=== PATIENT | male | born 1965 | race Two or more races ===

== ENCOUNTER 2025-01-08 17:45 | Emergency (ER) | payer MEDICARE, MEDICAID, SELFPAY ==
[2025-01-08 17:49] VITALS: BMI 32.0
[2025-01-08 18:05] VITALS: BP 152/88; PULSE 66; RESP 20; TEMP 37.2; O2SAT 95
--- NOTE | 2025-01-08 18:28 | EKG_ITS ---
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
[2025-01-08 18:43] LABS: Basophils % (Auto) 0 % (0-2.5); Eosinophils # (Auto) 0.1 Thou/mm3 (0.0-0.5); Eosinophils % (Auto) 2 % (0-10); Hematocrit 43.4 % (41.0-53.0); Immature Granulocytes % (Auto) 0 % (0-0); Immature Granulocytes Auto 0.01 Thou/mm3 (0.00-0.00); Lymphocytes # (Auto) 3.1 Thou/mm3 (1.0-4.8); Lymphocytes % (Auto) 47 % (10-50); Mean Corpuscular HGB Conc 34.6 g/dl (31.0-37.0); Mean Corpuscular Hemoglobin 30.2 pg (25.0-35.0); Mean Corpuscular Volume 87 fL (80-100); Monocytes # (Auto) 0.5 Thou/mm3 (0.0-0.8); Monocytes % (Auto) 8 % (0-12); Neutrophils # (Auto) 2.8 Thou/mm3 (1.8-7.7); Neutrophils % (Auto) 42 % (37-80); Nucleated Red Blood Cell % 0 /100 WBC (0); Platelet Count 211 Thou/mm3 (140-440); RDW Standard Deviation 43.8 fL (35.1-43.9); Red Blood Count 4.97 Miln/mm3 (4.50-5.90); White Blood Count 6.6 Thou/mm3 (3.8-10.6)
[2025-01-08 18:52] LABS: Collection Type, Urine Clean Catch; Squamous Epithelial Cell,Urine 0 /hpf (0-5)
[2025-01-08 18:56] LABS: Bilirubin,Urine Negative (Negative); Blood,Urine Negative (Negative); Clarity,Urine Clear (Clear/Hazy); Color,Urine Yellow (Lt Yel-Yel); Glucose, Urine Negative (Negative); Ketones,Urine Trace (Negative); Leukocyte Esterase,Urine Negative (Negative); Nitrite,Urine Negative (Negative); Protein,Urine Trace (Neg - Trace); RBC,Urine 2 /hpf (0-3); Specific Gravity,Urine 1.034 (1.001-1.035); Urobilinogen,Urine Negative mg/dL (0.0-1.0); WBC,Urine < 1 /hpf (0-5)
[2025-01-08 19:07] LABS: Alanine Aminotransferase 14 U/L (10-49); Albumin, Serum 4.4 gm/dL (3.4-4.8); Albumin/Globulin Ratio 1.5 (1.2-2.2); Alkaline Phosphatase 82 U/L (46-116); Anion Gap 8 (7-16); Aspartate Amino Transferase 26 U/L (0-34); BUN/Creatinine Ratio 15 Ratio (12-20); Bilirubin,Total 0.3 mg/dL (0.3-1.2); Blood Urea Nitrogen 20 mg/dL (9-23); Calcium 9.8 mg/dL (8.3-10.6); Calcium (Corrected) 9.8 mg/dL (8.5-10.1); Carbon Dioxide 24.6 mMol/L (20.0-31.0); Chloride 106 mMol/L (98-107); Creatinine (Component) 1.3 mg/dL (0.6-1.3); Estimated Creatinine Clearance 63.5 mL/min (>60); Globulin 2.9 gm/dL (2.3-3.5); Glucose 105 mg/dL (74-106); Lipase 41 U/L (12-53); Magnesium 1.9 mg/dL (1.6-2.6); Osmolality,Calculated 280 (275-295); Potassium 4.2 mMol/L (3.4-5.1); Sodium 139 mMol/L (136-145); Total Protein 7.3 gm/dL (5.7-8.2); Troponin I < 0.020 ng/mL (0.0-0.045); eGFR > 60 See Note
[2025-01-08 20:07] VITALS: BP 163/94; PULSE 62; RESP 19; TEMP 36.8; O2SAT 96
[2025-01-08 22:23] LABS: Amphetamine/Methamp Scrn,U Negative (Negative); Barbiturate Screen,Urine Negative (Negative); Benzodiazepines Screen,Urine Negative (Negative); Benzoylecgonine Screen, Ur Negative (Negative); Fentanyl Screen,Urine Negative (Negative); Opiate Screen,Urine Negative (Negative); THC Screen,Urine Negative (Negative)
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
== END 2025-01-08 22:54 | disposition home or self-care (01) ==
PROVIDERS: Physician Assistant; Emergency Provider Emergency Medicine
DX: R11.2 Nausea with vomiting, unspecified (principal)
CPT/HCPCS: 36415; 80053; 80307; 81001; 83690; 83735; 84484; 85025; 93005; 99283

== ENCOUNTER 2025-03-12 15:00 | Outpatient (RCR) | payer MEDICARE, MEDICAID, SELFPAY ==
--- NOTE | 2025-02-26 14:43 | PTNOTE_ITS ---
PT OP Initial Eval Patient Information Outpatient Physical Therapy Treatment Date: 02/26/25 Visit Reasons: Lower back hip pain/Sciatica RTside/Left side Medical Diagnosis: M54.32 M54.31 Treatment Dx #1: LBP with radiculopathy Start of Care: 02/26/25 Date of Onset: 2 months ago Smoking Status Smoking Status: Never smoker Initial Assessment Subjective: Pt is 60 yr old yakut speaking male who reports he fell onto the L side and glute x2 months and has had pain running down the LE's since then to the feet L>R. Pt is doing ADL's and HH chores with pain. Increased pain at night and getting OOB in the morning. PLOF: Pt fell and fractured T12 in 2015 and hasn't been able to work since then. PMH: T12 FX, prostate sx 2016, epilepsy Pt goal: less pain and more strength in B LE's Objective: Trunk ArOM: ? B SB 50% of normal with pain ? Extension: 20% with pain around L4-5, L5-S1 ? Flexion: 10 from floor with LBP ? B rotation: 60% with pain ? R SLR ROM: 45 deg. L SLR: 50 deg with posterior knee neural tension, LBP ? TTP: moderate paraspinals L5-S1 ? Neuro: L SLR: positive Assessment: Pt presents with trunk flexion sensitivity and overlying myofascial pain ? and TTP around L5-S1 consistent with ? lower lumbar disc bulge(s) with radiculopathy. Pt requires skilled therapy in order to decrease ? pain and improve sitting/standing tolerance and has fair rehab potential. Eval ?followed by HEP printout. Short Term and Longterm Goals 1. Ind with HEP ? 2. Improved sitting/standing tolerance to 30 minutes with <=4/10 LBP ? 3. Decreased lower paraspinal TTP from mod to min 4. Improved HH chore tolerance to at least 30 minutes with <=3/10 LBP and no ?increase in LE ssx ? Treatment Plan ? 1. Manual therapy ? 2. Therex ? 3. Modalities as indicated, moist heat, ice, estim, mechanical traction Frequency and Duration: 2x a week for 8 visits plus the eval Certification Dates: 02/26/25 to 05/29/25 Procedure Charges OP PT Eval Mod Complex 30 minutes: Yes
--- NOTE | 2025-03-04 16:24 | PT.ODAYNRPT ---
PT Outpatient Daily Note OP Daily Note Outpatient Physical Therapy Treatment Date: 03/04/25 Visit Reasons: Lower back hip pain/Sciatica RTside/Left side Subjective: Pt reports LBP, hip pain and foot pain. Objective: Please see flow sheet for ther ex list. Assessment: Interventions completed with minimal pain. Plan: Continue with pOC. Procedure Charges Therapeutic Exercise 30 minutes: Yes
--- NOTE | 2025-03-12 15:48 | PT.ODAYNRPT ---
PT Outpatient Daily Note OP Daily Note Outpatient Physical Therapy Treatment Date: 03/12/25 Visit Reasons: Lower back hip pain/Sciatica RTside/Left side Subjective: Pt reports LBP is mild today. Objective: Please see flow sheet for ther ex list. Assessment: Added interventions completed with good tolerance. Pt demonstrated increase lumbar lordosis during bug exercise, corrects post verbal and tactile cues to recruit abdominal muscles. Plan: Continue with POC. Length of Time (minutes) of Treatment: 30 Minutes FRESH FOODS CLERK Service Modifier Method I: Divide the number of min of care provided by the FRESH FOODS CLERK/[place] by the total min of care provided then multiply by 100. If greater than 11 percent modifier is required. Method II: Divide the total time of care provided to patient by 10 (round to the nearest whole number) and add 1 min. to set the minimum time requirement. If treatment total was 60 min., then 10% of 6 min PT CQ modifier applied: CQ Modifier applied Procedure Charges Therapeutic Exercise 30 minutes: Yes
== END 2025-03-15 23:59 | disposition home or self-care (01) ==
LOC: CPTX 15:00
PROVIDERS: PCP Physician Assistant; Referring Provider Physician Assistant; Visit Provider Physician Assistant
DX: M54.16 Radiculopathy, lumbar region (principal)
CPT/HCPCS: 97110; 97162

== ENCOUNTER 2025-04-09 13:30 | Outpatient (RCR) | payer MEDICARE, MEDICAID, SELFPAY ==
--- NOTE | 2025-03-19 16:40 | PT.ODAYNRPT ---
PT Outpatient Daily Note OP Daily Note Outpatient Physical Therapy Treatment Date: 03/19/25 Visit Reasons: LOW BACK PAIN Subjective: A little less LBP since starting therapy Objective: See F/S for therex MT: ALEJANDRA L/S x7' with flexbar Assessment: Good response with low pain with prone extension Plan: Continue per POC Length of Time (minutes) of Treatment: 30 Minutes Procedure Charges Therapeutic Exercise 30 minutes: Yes
--- NOTE | 2025-03-27 16:09 | PT.ODAYNRPT ---
PT Outpatient Daily Note OP Daily Note Outpatient Physical Therapy Treatment Date: 03/27/25 Visit Reasons: LOW BACK PAIN Subjective: More LBP and LE pain after last visit attributed to prone position Objective: See F/S for therex Mech traction L/S x7' at 45 lbs Assessment: Good response with low pain with traction Plan: Continue per POC Length of Time (minutes) of Treatment: 30 Minutes Procedure Charges Therapeutic Exercise 30 minutes: Yes
--- NOTE | 2025-03-31 10:40 | PTNOTE_ITS ---
PT Outpatient Daily Note OP Daily Note Outpatient Physical Therapy Treatment Date: 03/31/25 Visit Reasons: LOW BACK PAIN Subjective: Pt reports back feels about the same. Objective: Please see flow sheet for ther ex list. Assessment: Interventions completed with no complaints. Plan: Continue with pOC. Length of Time (minutes) of Treatment: 30 Minutes MIDDLE SCHOOL VOLLEYBALL COACH Service Modifier Method I: Divide the number of min of care provided by the MIDDLE SCHOOL VOLLEYBALL COACH/[place] by the total min of care provided then multiply by 100. If greater than 11 percent modifier is required. Method II: Divide the total time of care provided to patient by 10 (round to the nearest whole number) and add 1 min. to set the minimum time requirement. If treatment total was 60 min., then 10% of 6 min PT CQ modifier applied: CQ Modifier applied Procedure Charges Therapeutic Exercise 30 minutes: Yes
--- NOTE | 2025-04-09 14:16 | PT.ODAYNRPT ---
PT Outpatient Daily Note OP Daily Note Outpatient Physical Therapy Treatment Date: 04/09/25 Visit Reasons: LOW BACK PAIN Subjective: Continued LBP maybe a little less than before therapy Objective: See F/S for therex Assessment: Good demo of therex with low tissue irritability Plan: Continue per POC Length of Time (minutes) of Treatment: 30 Minutes Procedure Charges Therapeutic Exercise 30 minutes: Yes
== END 2025-04-14 23:59 | disposition home or self-care (01) ==
LOC: CPTX 13:30
PROVIDERS: PCP Physician Assistant; Referring Provider Physician Assistant; Visit Provider Physician Assistant
DX: M54.16 Radiculopathy, lumbar region (principal); M54.32 Sciatica, left side; M54.31 Sciatica, right side
CPT/HCPCS: 97110

== ENCOUNTER 2025-04-23 14:30 | Outpatient (RCR) | payer MEDICARE, MEDICAID, SELFPAY ==
--- NOTE | 2025-04-15 14:44 | PT.ODAYNRPT ---
PT Outpatient Daily Note OP Daily Note Outpatient Physical Therapy Treatment Date: 04/15/25 Visit Reasons: LOW BACK PAIN Subjective: Continued LBP maybe a little less than before therapy Objective: See F/S for therex Assessment: Good demo of therex with low tissue irritability Plan: Continue per POC Length of Time (minutes) of Treatment: 30 Minutes Procedure Charges Therapeutic Exercise 30 minutes: Yes
--- NOTE | 2025-04-23 17:01 | PT.ODS1RPT ---
PT OP Progress/Discharge Note Date of Service: 04/23/25 Progress Note/DC Note Progress Note/Discharge Note: DC Note Patient Information Visit Reasons: LOW BACK PAIN Service Continue Service or Discharge: Discharge Discharge Date: 04/23/25 Status Subjective: Continued LBP maybe a little less than before therapy. He is ready to continue at home with exercises. Objective: See F/S for therex Trunk AROM: FB: 10 from floor Extension: 30% of full B rotation: 60% of full TTP: min TTP of lumbar paraspinals Assessment: Pt has attended the eval and 8 Rx sessions with fair progress with goals. Pt has improved sitt/standing and HH chore tolelrance to 30 minutes with 3-4/10 LBP to meet those goals. He has less lumbara paraspinal TTP form mod to min to meet that goal and is independent with HEP. Plan: D/C with HEP Procedure Charges Therapeutic Exercise 30 minutes: Yes
== END 2025-05-15 23:59 | disposition home or self-care (01) ==
LOC: CPTX 14:30
PROVIDERS: PCP Physician Assistant; Referring Provider Physician Assistant; Visit Provider Physician Assistant
DX: M54.16 Radiculopathy, lumbar region (principal); M54.32 Sciatica, left side; M54.31 Sciatica, right side
CPT/HCPCS: 97110

== ENCOUNTER 2025-08-24 10:35 | Emergency (ER) | payer MEDICARE, MEDICAID, SELFPAY ==
[2025-08-24 11:18] VITALS: BP 131/82; PULSE 75; RESP 16; TEMP 37.2; O2SAT 95; BMI 29.7
--- NOTE | 2025-08-24 11:43 | XR_ITS ---
Examination: CT abdomen and pelvis without contrast. Coronal 3-D reconstructions. Sagittal 2-D reconstructions. Date and time of exam: August 24, 2025, 1202 hours, comparison May 08, 2019 INDICATIONS: Right lower abdominal pain beginning 5 days ago CTDI: vol (mGy): 8.1 DLP: (mGycm): 454 Technique: Axial images of the abdomen have been obtained, 3 mm slice thickness Intravenous contrast material has not been administered. Low dose protocols were performed. One or more of the following dose reduction techniques were used; automated exposure control, adjustment of the mA and/or KV according to patient size, use of iterative reconstruction technique. Findings: No liver or splenic lesion Absent gallbladder No pancreatic or adrenal mass No renal or ureteral calculi, no hydronephrosis Normal appendix No bowel obstruction or diverticulitis Normal seminal vesicles No significant prostatomegaly Contracted urinary bladder Moderate osteopenia including mild chronic wedging T12 Mild narrowing hip joints IMPRESSION: No renal or ureteral calculi, no hydronephrosis Normal appendix No bowel obstruction diverticulitis or free air
--- NOTE | 2025-08-24 11:44 | EDNOTE_ITS ---
<Statement entered by Monie Marsh MD - 08/24/25 16:31> As co-signing physician, I was present and available for consult prn. I concur with the plan and care as documented by the midlevel provider. ED General RME/HPI General Chief complaint: Abdominal Pain Stated complaint: RIGHT GROIN PAIN Time Seen by Provider: 08/24/25 11:43 Arrival date/time: 08/24/25 10:35 CC: Right lower quadrant abdominal pain with painful urination HPI ongoing for 1 week, ibuprofen and Tylenol taken without relief denies bloody urination vomiting or diarrhea. No chest pain shortness of breath or difficulty breathing. Related Data Home Medications ?Medication ?Instructions ?Recorded ?Confirmed carbamazepine 200 mg tablet 100 mg PO TID #0 tabs 06/0108/08/20 (Tegretol) divalproex 500 mg tablet,delayed 500 mg PO BID #0 tabs 08/23/17 08/08/20 release (Depakote) ibuprofen 800 mg tablet 800 mg PO TID PRN PAIN #0 ta bs 08/23/17 08/08/20 mirtazapine 30 mg tablet (Remeron) 30 mg PO HS #0 tabs 08/23/17 08/08/20 Previous Rx's ?Medication ?Instructions ?Recorded docusate sodium 100 mg capsule 100 mg PO BID #30 caps 04/17/19 (Colace) hydrocodone 5 mg-acetaminophen 325 1 tab PO Q6H PRN pa in #14 tabs 04/17/19 mg tablet (Fouke) ondansetron 8 mg disintegrating 8 mg PO Q8H PRN nausea and 05/09/19 tablet vomiting #9 tabs acetaminophen 325 mg capsule 975 mg (3 x 325 mg) PO Q6 H PRN 04/25/20 pain #30 caps cyclobenzaprine 5 mg tablet 10 mg (2 x 5 mg) PO TID UT N muscle 04/25/20 spasm #30 tabs ondansetron HCl 4 mg tablet 4 mg PO Q8H #20 tabs 08/08 (Zofran) ibuprofen 800 mg tablet 800 mg PO TID PRN pain #20 t abs 03/06/21 ondansetron 4 mg disintegrating 4 mg PO Q8H #10 tabs 0 3/26/25 tablet dicyclomine 20 mg tablet 20 mg PO BID #10 tabs Allergies Allergy/AdvReac Type Severity Reaction Status Date / Time No Known Allergies Allergy Verified 01/08/25 17:52 Past Medical History Past Medical History NEUROLOGIC: Positive Neurological Disorders, Seizures and Head Trauma (14 YRS OLD) CARDIAC: Negative Cardiac Disorders or Congestive Heart Failure RESPIRATORY: Negative Chronic Obstructive Pulmonary Disease (COPD) or Asthma GASTROINTESTINAL: Positive Gastrointestinal Disorders, Gall Bladder Disease (SX APPROX. 2017), Bartlett's Esophagus (APPROX. 33 YRS OLD DX IN [place]) and Gastroesophageal Reflux Disease GENITOURINARY: Negative Genitourinary Disorders or Renal Disease MUSCULOSKELETAL: Positive Fractures (LOWER BACK SLIGHT); Negative Musculoskeletal Disorders ENT: Positive Head Trauma (14 YRS OLD) ENDOCRINE: Negative Endocrine Disorders, Diabetes Mellitus Type 1 or Diabetes Mellitus Type 2 HEMATOLOGIC: Negative Blood Disorders or Sickle Cell Disease OTHER HISTORY: Negative Hospitalization, Autoimmune Disease, Shingles, Falls, Chemotherapy, Radiation Therapy, MRSA or Chicken Pox Family History FAMILY HISTORY: Positive Family Cardiac Disorders (FATHER (HTN)), Family Cancer (PROSTATE CA- FATHER) and Family Surgery (FATHER,MOTHER); Negative Family Psychiatric Problems, Family Respiratory Disorders, Family Gastrointestinal Problems or Family Anesthesia Reaction Surgical History SURGICAL: Negative Cardiac Surgery, Endocrine Surgery, Ear Surgery or Joint Replacement Social History SMOKING STATUS: Never smoker ED Exam Narrative Physical exam: [General: In mild discomfort but not in any acute distress Head normocephalic HEENT: Within acceptable limits Neck is supple nontender Chest equal chest rise nontender to palpation Respiratory: Clear to auscultation no wheezes crackles or rubs CV: Rate rhythm is regular no murmurs rubs or clicks Abdomen is soft, right lower quadrant tenderness with palpation no reflexive guarding no rebound tenderness no tenderness in all other quadrants or the epigastrium. Positive bowel sounds all 4 quadrants Back: No CVA tenderness no spinous process tenderness from cervical spine thoracic and lumbar spine Skin: Intact no petechiae rash induration ulceration or crepitus Extremities: Moving all extremity against resistance cap refill less than 2 seconds neurosensory intact Neuro: Awake alert oriented x3 Glascow coma 15 no focal deficits] Course Quality Measures none Orders Category Date Time Status CT abdomen pelvis wo con Stat Exams 08/24/25 11:43 Completed B-Type Natriuretic Peptide Stat Lab 08/24/25 12:22 Completed CBC Stat Lab 08/24/25 12:22 Completed Comprehensive Metabolic Panel Stat Lab 08/24/25 12:22 Completed Drug Screen,Urine Stat Lab 08/24/25 12:40 Completed Lipase Stat Lab 08/24/25 12:22 Completed Magnesium Stat Lab 08/24/25 12:22 Completed Partial Thromboplastin Time Stat Lab 08/24/25 12:22 Completed Prothrombin Time with INR Stat Lab 08/24/25 12:22 Completed Urinalysis, C/S if Indicated Stat Lab 08/24/25 12:40 Completed Vital Signs Vital signs: Vital Signs Temperature 98.9 F 08/24/25 11:18 Pulse Rate 75 08/24/25 11:18 Respiratory Rate 16 08/24/25 11:18 Blood Pressure 131/82 H 08/24/25 11:18 Pulse Oximetry (%) 95 08/24/25 11:18 Oxygen Delivery Method Room Air 08/24/25 11:18 Discharge Plan Plan Patient Disposition: HOME (Self Care) Patient condition on transfer: Stable Prescriptions/Referrals Prescriptions/Med Rec: New dicyclomine 20 mg tablet 20 mg PO BID Qty: 10 0RF No Action ibuprofen 800 MG tablet 800 mg PO TID PRN (Reason: PAIN) Qty: 0 divalproex [Depakote] 500 MG tablet,delayed release (DR/EC) 500 mg PO BID Qty: 0 carbamazepine [Tegretol] 200 MG tablet 100 mg PO TID Qty: 0 mirtazapine [Remeron] 30 MG tablet 30 mg PO HS Qty: 0 hydrocodone-acetaminophen [Fouke] 5-325 mg tablet 1 tab PO Q6H MDD 4 PRN (Reason: pain) Qty: 14 0RF docusate sodium [Colace] 100 mg capsule 100 mg PO BID Qty: 30 0RF ondansetron HCl [Zofran] 4 mg tablet 4 mg PO Q8H Qty: 20 0RF ibuprofen 800 mg tablet 800 mg PO TID PRN (Reason: pain) Qty: 20 0RF ondansetron 8 mg tablet,disintegrating 8 mg PO Q8H PRN (Reason: nausea and vomiting) Qty: 9 0RF cyclobenzaprine 5 mg tablet 10 mg PO TID PRN (Reason: muscle spasm) Qty: 30 0RF acetaminophen 325 mg capsule 975 mg PO Q6H PRN (Reason: pain) Qty: 30 0RF ondansetron 4 mg tablet,disintegrating 4 mg PO Q8H Qty: 10 0RF Problem List Clinical Impression: Abdominal pain Patient/Caregiver Discharge Instructions Other Activity Instructions:: Take the medication as prescribed follow-up with your primary care doctor there is no acute finding in the CT and your blood work is normal. Education Materials: Abdominal Pain Print Language: Uzbek Stand Alone Forms: Rocio Award Info., Work/School Release, Patient Portal Info Letter PA/TOMAS Supervising Physician MADDIE/TOMAS Supervising Physician: Jam Baca ENP MDM Clinical Information Provided by: patient Medical Records reviewed [facility] Meds/Rx considered, not ordered None Labs/Rad/Tests considered, not ordered None Chronic Illness/Social Conditions which may negatively complicate care or outcome(s)-explain: None or not applicable EKG EKG not done Labs Labs: interpreted by me Lab(s) Interpretation(s): CBC shows no acute leukocytosis anemia thrombocytopenia CMP shows no electrolyte imbalances renal impairment transaminitis or T. bili elevation Coags within acceptable limits Urine is negative for urinary tract infection. Imaging Imaging interpretation: interpreted by me Imaging Interpretation(s): CT of the abdomen pelvis shows no acute finding requires emergent or immediate intervention. Medication Administration(s) none Diagnosis Differential Diagnosis ED Complaint MDM: Appendicitis ileus obstruction
[2025-08-24 12:52] LABS: Basophils # (Auto) 0.0 Thou/mm3 (0.0-0.2); Basophils % (Auto) 0 % (0-2.5); Eosinophils # (Auto) 0.0 Thou/mm3 (0.0-0.5); Eosinophils % (Auto) 0 % (0-10); Hematocrit 45.5 % (41.0-53.0); Hemoglobin 15.4 g/dL (13.5-16.0); Immature Granulocytes Auto 0.01 Thou/mm3 (0.00-0.00); Lymphocytes # (Auto) 0.5 Thou/mm3 (1.0-4.8); Lymphocytes % (Auto) 9 % (10-50); Mean Corpuscular HGB Conc 33.8 g/dl (31.0-37.0); Mean Corpuscular Hemoglobin 30.6 pg (25.0-35.0); Mean Corpuscular Volume 91 fL (80-100); Monocytes # (Auto) 0.4 Thou/mm3 (0.0-0.8); Monocytes % (Auto) 6 % (0-12); Neutrophils # (Auto) 4.9 Thou/mm3 (1.8-7.7); Neutrophils % (Auto) 85 % (37-80); Nucleated Red Blood Cell # 0.00 Thou/mm3 (0.00-0.00); Nucleated Red Blood Cell % 0 /100 WBC (0); Platelet Count 169 Thou/mm3 (140-440); RDW Standard Deviation 43.9 fL (35.1-43.9); Red Blood Count 5.03 Miln/mm3 (4.50-5.90); White Blood Count 5.8 Thou/mm3 (3.8-10.6)
[2025-08-24 13:01] LABS: INR 1.2 (0.9-1.3); Partial Thromboplastin Time 26.3 Seconds (22.0-36.0); Prothrombin Time 12.4 Seconds (9.0-12.2)
[2025-08-24 13:05] LABS: Collection Type, Urine Clean Catch; Squamous Epithelial Cell,Urine 0 /hpf (0-5)
[2025-08-24 13:06] LABS: Alanine Aminotransferase 13 U/L (10-49); Albumin, Serum 4.3 gm/dL (3.4-4.8); Albumin/Globulin Ratio 2.0 (1.2-2.2); Alkaline Phosphatase 68 U/L (46-116); Anion Gap 6 (7-16); Aspartate Amino Transferase 26 U/L (0-34); BUN/Creatinine Ratio 12 Ratio (12-20); Bilirubin,Total 0.5 mg/dL (0.3-1.2); Blood Urea Nitrogen 13 mg/dL (9-23); Calcium 8.7 mg/dL (8.3-10.6); Calcium (Corrected) 8.7 mg/dL (8.5-10.1); Carbon Dioxide 26.3 mMol/L (20.0-31.0); Chloride 107 mMol/L (98-107); Creatinine (Component) 1.1 mg/dL (0.6-1.3); Estimated Creatinine Clearance 75.4 mL/min (>60); Globulin 2.1 gm/dL (2.3-3.5); Glucose 100 mg/dL (74-106); Lipase 30 U/L (12-53); Magnesium 1.8 mg/dL (1.6-2.6); Osmolality,Calculated 277 (275-295); Potassium 4.4 mMol/L (3.4-5.1); Sodium 139 mMol/L (136-145); Total Protein 6.4 gm/dL (5.7-8.2); eGFR > 60 See Note
[2025-08-24 13:11] LABS: B-Type Natriuretic Peptide 34 pg/mL (0-100)
[2025-08-24 13:39] LABS: Bilirubin,Urine Negative (Negative); Blood,Urine Negative (Negative); Clarity,Urine Clear (Clear/Hazy); Color,Urine Yellow (Lt Yel-Yel); Culture Indicated,Urine Not Indicated; Glucose, Urine Negative (Negative); Ketones,Urine Negative (Negative); Leukocyte Esterase,Urine Negative (Negative); Nitrite,Urine Negative (Negative); PH,Urine 6.0 (5.0-7.0); Protein,Urine Trace (Neg - Trace); RBC,Urine 3 /hpf (0-3); Specific Gravity,Urine 1.032 (1.001-1.035); Urobilinogen,Urine Negative mg/dL (0.0-1.0); WBC,Urine < 1 /hpf (0-5)
[2025-08-24 13:51] LABS: Amphetamine/Methamp Scrn,U Negative (Negative); Barbiturate Screen,Urine Negative (Negative); Benzodiazepines Screen,Urine Negative (Negative); Benzoylecgonine Screen, Ur Negative (Negative); Fentanyl Screen,Urine Negative (Negative); Opiate Screen,Urine Negative (Negative); THC Screen,Urine Negative (Negative)
== END 2025-08-24 14:32 | disposition home or self-care (01) ==
LOC: SERX 13:31
PROVIDERS: Registered Nurse General Practice; Emergency Provider Emergency Medicine; PCP Physician Assistant
DX: R10.9 Unspecified abdominal pain (principal)
CPT/HCPCS: 36415; 74176; 80053; 80307; 81001; 83690; 83735; 83880; 85025; 85610; 85730; 99283